=== PATIENT | male | born 1990 | race African-American/Black ===

== ENCOUNTER 2016-12-12 00:49 | Emergency (ER) | payer MEDICARE ==
[~2016-12-12] VITALS: Ht 188 cm; Wt 250.0 kg
[~2016-12-12 00:49] MED LIST: CITA10TA8; CITA20TA9 PO; ENAL20TA68 PO; FURO-93 PO; LISI1POW; LISI40TA PO; METF500T4 PO; QUET100T4 PO; TRAZ50TA18 PO; TRAZ5POW
[2016-12-12 00:50] VITALS: BP 142/80
[2016-12-12] MEDS ORDERED: KETOROLAC 30 MG/1 ML ONE (01:21)
[2016-12-12] MEDS ORDERED: KETOROLAC 30 MG/1 ML IM ONE (01:30)
== END 2016-12-12 03:53 | disposition home or self-care (01) ==
LOC: ED 01:01
DX: G89.11 Acute pain due to trauma (principal); M25.562 Pain in left knee; E11.9 Type 2 diabetes mellitus without complications; I10 Essential (primary) hypertension; J45.909 Unspecified asthma, uncomplicated; Z90.49 Acquired absence of other specified parts of digestive tract
CPT/HCPCS: 73564; 96372; 99284; J1885

== ENCOUNTER 2017-04-12 19:24 | Emergency (ER) | payer MEDICARE ==
[~2017-04-12] VITALS: Ht 188 cm; Wt 218.0 kg
[2017-04-12] MEDS ORDERED: BACITRACIN ZINC OINT 500U/GM, 0.9 GM ONE ×3 (19:44→19:47)
[2017-04-12] MEDS ORDERED: IBUPROFEN 200 MG TABLET PO ONE (20:00)
[2017-04-12] MEDS ORDERED: IBUPROFEN 200 MG TABLET ONE (20:18)
[2017-04-12 20:26] VITALS: BP 144/82
== END 2017-04-12 20:29 | disposition home or self-care (01) ==
LOC: ED 19:48
DX: E66.01 Morbid (severe) obesity due to excess calories (principal); Z68.41 Body mass index [BMI] 40.0-44.9, adult; R23.4 Changes in skin texture; I10 Essential (primary) hypertension; E11.9 Type 2 diabetes mellitus without complications; J45.909 Unspecified asthma, uncomplicated; Z90.49 Acquired absence of other specified parts of digestive tract; F17.200 Nicotine dependence, unspecified, uncomplicated
CPT/HCPCS: 99283

== ENCOUNTER 2019-02-22 04:05 | Emergency (ER) | payer MEDICARE, MEDICAID ==
[~2019-02-22] VITALS: Ht 188 cm; Wt 242.3 kg
[~2019-02-22 04:05] MED LIST changes: +METF500T17 PO; -METF500T4 PO; -TRAZ50TA18 PO; +TRAZ50TA66 PO
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
--- NOTE | 2019-02-22 04:48 | NUR ---
LAB IN ROOM AT THIS TIME.
[2019-02-22 05:11] LABS: BASOPHILS # (AUTO) 0.02 x10^3/uL (0-0.1); BASOPHILS % (AUTO) 0 % (0-1); EOSINOPHILS # (AUTO) 0.23 x10^3/uL (0-0.4); EOSINOPHILS % (AUTO) 2 % (1-7); LYMPHOCYTES # (AUTO) 3.03 x10^3/uL (1-3.4); LYMPHOCYTES % (AUTO) 22 % (22-44); MD NO; MEAN CORPUSCULAR HEMOGLOBIN 25.8 pg (27.5-34.5); MEAN CORPUSCULAR HGB CONC 31.6 g/dL (33.2-36.2); MEAN CORPUSCULAR VOLUME 81.8 fL (81-97); MEAN PLATELET VOLUME 8.4 fL (7.4-10.4); MONOCYTES # (AUTO) 1.25 x10^3/uL (0.2-0.8); MONOCYTES % (AUTO) 9 % (2-9); NEUTROPHILS # (AUTO) 8.99 x10^3/uL (1.8-6.8); NEUTROPHILS % (AUTO) 67 % (42-75); PLATELET COUNT 315 x10^3/uL (130-400); RED BLOOD COUNT 5.24 x10^6/uL (4.38-5.82); RED CELL DISTRIBUTION WIDTH 16.1 % (9.4-14.8)
--- NOTE | 2019-02-22 05:23 | NUR ---
LAB RESULTS PENDING
--- NOTE | 2019-02-22 05:23 | NUR ---
PT PROVIDED SANDWICH, REG DIET ORDERED BY ERP. ALL NEEDS MET AT THIS TIME. VSS. CALL LIGHT WITHIN REACH.
[2019-02-22 05:26] LABS: CALCIUM 8.6 mg/dL (8.5-10.1); CHLORIDE 110 mmol/L (98-107)
[2019-02-22 05:32] LABS: ALANINE AMINOTRANSFERASE 27 U/L (12-78); ALBUMIN 3.2 g/dL (3.4-5.0); ALKALINE PHOSPHATASE 82 U/L (45-117); ANION GAP 6 mmol/L (5-15); BILIRUBIN,TOTAL 0.9 mg/dL (0.2-1.0); CREATININE 1.15 mg/dL (0.7-1.3); TOTAL PROTEIN 7.3 g/dL (6.4-8.2)
[2019-02-22 05:53] VITALS: BP 144/62
--- NOTE | 2019-02-22 05:53 | NUR ---
PT REPORTS NO DIZZINESS AT THIS TIME. STATES "IM FEELING OKAY". PT PROVIDED D/C INFORMATION. VSS UPON D/C.
== END 2019-02-22 05:58 | disposition home or self-care (01) ==
LOC: ED 05:24
DX: R53.1 Weakness (principal); F12.10 Cannabis abuse, uncomplicated; E11.9 Type 2 diabetes mellitus without complications; Z72.89 Other problems related to lifestyle; Z90.49 Acquired absence of other specified parts of digestive tract
CPT/HCPCS: 36415; 80053; 85025; 93005; 99284

== ENCOUNTER 2019-10-31 13:40 | Emergency (ER) | payer MEDICAID, MEDICARE ==
[~2019-10-31] VITALS: Ht 188 cm; Wt 265.0 kg
[2019-10-31 13:50] VITALS: BP 152/96
--- NOTE | 2019-10-31 14:05 | NUR ---
SONOSCOPE OPERATOR: PT TO ROOM FROM [facility]
[2019-10-31] MEDS ORDERED: METHOCARBAMOL 750 MG TABLET ONE (14:30)
[2019-10-31] MEDS ORDERED: KETOROLAC 60 MG/2 ML ONE (14:30)
[2019-10-31] MEDS ORDERED: KETOROLAC 30 MG/1 ML IM ONE (14:30)
[2019-10-31] MEDS ORDERED: METHOCARBAMOL 750 MG TABLET PO ONE (14:30)
--- NOTE | 2019-10-31 14:36 | NUR ---
MEDS ADMIN PER MAY.
== END 2019-10-31 15:53 | disposition home or self-care (01) ==
LOC: ED 14:55
DX: S39.012A Strain of muscle, fascia and tendon of lower back, initial encounter (principal); I10 Essential (primary) hypertension; E11.9 Type 2 diabetes mellitus without complications; F20.9 Schizophrenia, unspecified; Z90.49 Acquired absence of other specified parts of digestive tract; Z88.6 Allergy status to analgesic agent; X58.XXXA Exposure to other specified factors, initial encounter; Y93.89 Activity, other specified; Y92.89 Other specified places as the place of occurrence of the external cause; Y99.8 Other external cause status
CPT/HCPCS: 96372; 99283; J1885

== ENCOUNTER 2020-01-17 19:32 | Emergency (ER) | payer MEDICARE, MEDICAID ==
[~2020-01-17] VITALS: Ht 188 cm; Wt 277.0 kg
[2020-01-17 19:43] VITALS: BP 165/98
--- NOTE | 2020-01-17 21:41 | NUR ---
pt to room from lobby
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
[2020-01-17] MEDS ORDERED: ARIP20TA5 PO (22:13)
[2020-01-17] MEDS ORDERED: TRAZ-175 PO (22:13)
--- NOTE | 2020-01-17 22:13 | NUR ---
PT. TO X-RAY VIA [employer].
[2020-01-17] MEDS ORDERED: NEOSPORIN OINT. PKT 1 PACKET ONE (23:09)
[2020-01-17] MEDS ORDERED: BACITRACIN ZINC OINT 500U/GM, 0.9 GM TP ONE (23:30)
== END 2020-01-17 23:48 | disposition home or self-care (01) ==
LOC: ED 23:18
DX: S30.811A Abrasion of abdominal wall, initial encounter (principal); M79.651 Pain in right thigh; I10 Essential (primary) hypertension; E11.9 Type 2 diabetes mellitus without complications; J45.909 Unspecified asthma, uncomplicated; Z90.49 Acquired absence of other specified parts of digestive tract; W01.0XXA Fall on same level from slipping, tripping and stumbling without subsequent striking against object, initial encounter; Y93.89 Activity, other specified; Y92.009 Unspecified place in unspecified non-institutional (private) residence as the place of occurrence of the external cause; Y99.8 Other external cause status
CPT/HCPCS: 99283

== ENCOUNTER 2020-03-03 13:26 | Emergency (ER) | payer MEDICAID, MEDICARE ==
[~2020-03-03] VITALS: Ht 188 cm; Wt 254.0 kg
[~2020-03-03 13:26] MED LIST changes: +ARIP20TA5 PO; +TRAZ-175 PO
--- NOTE | 2020-03-03 14:57 | NUR ---
PT TO ROOM AT THIS TIME.
[2020-03-03] MEDS ORDERED: KETOROLAC 30 MG/1 ML IM ONE (15:30)
[2020-03-03] MEDS ORDERED: KETOROLAC 30 MG/1 ML ONE (15:39)
[2020-03-03 15:40] LABS: BASOPHILS % (AUTO) 1 % (0-1); EOSINOPHILS % (AUTO) 1 % (1-7); LYMPHOCYTES % (AUTO) 18 % (22-44); MEAN CORPUSCULAR HEMOGLOBIN 24.9 pg (27.5-34.5); MEAN CORPUSCULAR HGB CONC 32.3 g/dL (33.2-36.2); MEAN PLATELET VOLUME 7.8 fL (7.4-10.4); MONOCYTES % (AUTO) 8 % (2-9); NEUTROPHILS % (AUTO) 72 % (42-75); PLATELET COUNT 414 x10^3/uL (130-400); RED BLOOD COUNT 5.44 x10^6/uL (4.38-5.82); RED CELL DISTRIBUTION WIDTH 16.7 % (9.4-14.8)
[2020-03-03 15:41] LABS: ANION GAP 4 mmol/L (5-15); CALCIUM 8.5 mg/dL (8.5-10.1); CHLORIDE 105 mmol/L (98-107); CREATININE 1.29 mg/dL (0.7-1.3)
[2020-03-03 15:42] LABS: ALBUMIN 3.2 g/dL (3.4-5.0)
--- NOTE | 2020-03-03 15:44 | NUR ---
TASK RN: URINE COLLECTED AND SENT TO LAB. PT MEDICATED PER EMAR. PT RESTING ON [employer] W/ CALL LIGHT IN REACH AND SIDE RAILS UPX2. RESP EVEN AND UNLABORED, GIANNA.
[2020-03-03 15:47] LABS: MD NO
[2020-03-03 15:50] LABS: MICROSCOPIC AUTO
--- NOTE | 2020-03-03 16:59 | NUR ---
PATIENT REPORTS INCREASED COMFORT AFTER PAIN MEDICATION.
[2020-03-03 18:02] VITALS: BP 149/103
== END 2020-03-03 18:12 | disposition home or self-care (01) ==
LOC: ED 16:28
DX: M79.671 Pain in right foot (principal); M79.672 Pain in left foot; I99.8 Other disorder of circulatory system; E66.01 Morbid (severe) obesity due to excess calories; I10 Essential (primary) hypertension; E11.9 Type 2 diabetes mellitus without complications; J45.909 Unspecified asthma, uncomplicated; Z90.49 Acquired absence of other specified parts of digestive tract; Z68.41 Body mass index [BMI] 40.0-44.9, adult
CPT/HCPCS: 36415; 71045; 80048; 81001; 82040; 83880; 85025; 96372; 99284; J1885

== ENCOUNTER 2020-05-22 19:08 | Emergency (ER) | payer MEDICARE ==
[~2020-05-22] VITALS: Ht 188 cm; Wt 210.0 kg
[~2020-05-22 19:08] MED LIST changes: -LISI40TA PO; +LISI40TA9 PO
--- NOTE | 2020-05-22 19:26 | NUR ---
MARLON BATRES FROM [facility] FOR C/O INCRESED SOB AND BILAT SHOULDER PAIN WHILE WALKING TONIGHT. DR. FERNANDEZ WAS IN TO EVAL PT. AND DISCUSS POC. EKG DONE ON ARRIVAL. CONTINUOUS PULSE OX, B/P, AND CARDIAC MONITORS PLACED. NSR NOTED ON MONITOR. CALL LIGIHT IN REACH. ALL SAFETY MEASURES OBSERVED.
[2020-05-22 19:39] LABS: BASOPHILS % (AUTO) 1 % (0-1); EOSINOPHILS % (AUTO) 1 % (1-7); LYMPHOCYTES % (AUTO) 24 % (22-44); MEAN CORPUSCULAR HEMOGLOBIN 24.5 pg (27.5-34.5); MEAN CORPUSCULAR HGB CONC 32.1 g/dL (33.2-36.2); MEAN PLATELET VOLUME 8.1 fL (7.4-10.4); MONOCYTES % (AUTO) 8 % (2-9); NEUTROPHILS % (AUTO) 67 % (42-75); PLATELET COUNT 361 x10^3/uL (130-400); RED BLOOD COUNT 5.44 x10^6/uL (4.38-5.82); RED CELL DISTRIBUTION WIDTH 16.8 % (9.4-14.8)
[2020-05-22 19:43] LABS: MD NO
[2020-05-22 19:53] LABS: ALBUMIN 3.1 g/dL (3.4-5.0); ANION GAP 6 mmol/L (5-15); CALCIUM 8.1 mg/dL (8.5-10.1); CHLORIDE 107 mmol/L (98-107); CREATININE 1.08 mg/dL (0.7-1.3)
[2020-05-22 19:57] LABS: TROPONIN I < 0.015 ng/mL (0.000-0.045)
--- NOTE | 2020-05-22 20:29 | NUR ---
CHART UP FOR RECHECK BY ERP.
--- NOTE | 2020-05-22 20:35 | NUR ---
PT. RESTING ON GURNEY WITH RAPID/NON-LABORED RESPIRATIONS. PT. PROVIDED WITH WARM BLANKET. DENIES OTHER NEEDS AT THIS TIME. SAFETY MEASURES MAINTAINED.
--- NOTE | 2020-05-22 21:27 | NUR ---
LAB AT FOR REPEAT BLOOD DRAW.
[2020-05-22 21:49] LABS: TROPONIN I < 0.015 ng/mL (0.000-0.045)
[2020-05-22] MEDS ORDERED: KETOROLAC 60 MG/2 ML ONE (21:52)
[2020-05-22] MEDS ORDERED: KETOROLAC 30 MG/1 ML IM ONE (22:00)
[2020-05-22 23:04] VITALS: BP 146/78
== END 2020-05-22 23:05 | disposition home or self-care (01) ==
LOC: ED 19:54
DX: R06.00 Dyspnea, unspecified (principal); R94.31 Abnormal electrocardiogram [ECG] [EKG]; I10 Essential (primary) hypertension; E11.9 Type 2 diabetes mellitus without complications; J45.909 Unspecified asthma, uncomplicated; F17.200 Nicotine dependence, unspecified, uncomplicated; Z90.49 Acquired absence of other specified parts of digestive tract; Z88.5 Allergy status to narcotic agent; Z88.6 Allergy status to analgesic agent
CPT/HCPCS: 36415; 71045; 80048; 82040; 83880; 84484; 85025; 85379; 93005; 96372; 99285; J1885

== ENCOUNTER 2020-06-17 20:12 | Emergency (ER) | payer MEDICARE ==
[~2020-06-17] VITALS: Ht 177.8 cm; Wt 272.5 kg
[2020-06-17] MEDS ORDERED: KETOROLAC 30 MG/1 ML IM ONE (21:00)
[2020-06-17] MEDS ORDERED: KETOROLAC 30 MG/1 ML ONE (21:01)
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
--- NOTE | 2020-06-17 21:21 | NUR ---
BS 143
[2020-06-17 22:38] VITALS: BP 130/64
== END 2020-06-17 22:41 ==
LOC: ED 20:55
DX: G62.9 Polyneuropathy, unspecified (principal); G89.29 Other chronic pain; M79.671 Pain in right foot; M79.672 Pain in left foot; I10 Essential (primary) hypertension; E11.9 Type 2 diabetes mellitus without complications; Z76.0 Encounter for issue of repeat prescription
CPT/HCPCS: 82962; 96372; 99283; J1885

== ENCOUNTER 2020-11-29 15:32 | Emergency (ER) | payer MEDICARE ==
[~2020-11-29] VITALS: Ht 188 cm; Wt 245.0 kg
[2020-11-29 15:46] VITALS: BP 172/90
[2020-11-29 16:11] LABS: BASOPHILS % (AUTO) 1 % (0-1); EOSINOPHILS % (AUTO) 1 % (1-7); LYMPHOCYTES % (AUTO) 25 % (22-44); MEAN CORPUSCULAR HEMOGLOBIN 25.2 pg (27.5-34.5); MEAN CORPUSCULAR HGB CONC 32.9 g/dL (33.2-36.2); MEAN PLATELET VOLUME 7.9 fL (7.4-10.4); MONOCYTES % (AUTO) 8 % (2-9); NEUTROPHILS % (AUTO) 65 % (42-75); PLATELET COUNT 344 x10^3/uL (130-400); RED BLOOD COUNT 5.32 x10^6/uL (4.38-5.82); RED CELL DISTRIBUTION WIDTH 17.1 % (9.4-14.8)
[2020-11-29 16:17] LABS: CALCIUM 8.2 mg/dL (8.5-10.1); CHLORIDE 105 mmol/L (98-107)
[2020-11-29 16:22] LABS: ALANINE AMINOTRANSFERASE 22 U/L (12-78); ALBUMIN 2.8 g/dL (3.4-5.0); ALKALINE PHOSPHATASE 89 U/L (45-117); ANION GAP 5 mmol/L (5-15); BILIRUBIN,TOTAL 1.1 mg/dL (0.2-1.0); TOTAL PROTEIN 7.5 g/dL (6.4-8.2)
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
[2020-11-29 16:29] LABS: SALICYLATE LEVEL < 1.7 mg/dL (2.8-20.0)
[2020-11-29] MEDS ORDERED: CITALOPRAM 10 MG TABLET PO SCH (16:30)
[2020-11-29] MEDS ORDERED: ARIPIPRAZOLE 10 MG TABLET PO SCH (16:30)
--- NOTE | 2020-11-29 17:30 | NUR ---
pt sleeping, resps even and unlabored. sitter monitoring from community health for safety.
--- NOTE | 2020-11-29 18:23 | NUR ---
THROUGHPUT: [facility] WHEN MEDICALLY CLEARED. PT STILL NEEDS URINE, AND RAPID COVID. NOTIFIED PRIMARY RN
--- NOTE | 2020-11-29 18:43 | NUR ---
URINE AND COVID SWAB COLLECTED PER POLICY FOR TRANSFER TO [facility]. PT PROVIDED WITH SUICIDE DIET TRAY. PT A&O, RESPS EVEN AND UNLABORED, GIANNA. SITTER MONITORING FROM [facility] FOR SAFETY.
--- NOTE | 2020-11-29 18:59 | NUR ---
PT UP TO VOID IN BATHROOM, GAIT STEADY. NOW BACK IN BED, SITTER MONITORING FROM HALLWAY FOR SAFETY.
--- NOTE | 2020-11-29 19:06 | NUR ---
RECEIVED REPORT FROM ALEXY NASH. PT RESTING ON [facility]. NADN. MURILLO REMAINS AT BEDSIDE.
--- NOTE | 2020-11-29 19:08 | NUR ---
REPORT GIVEN TO U ALEXY RANDOLPH, WELL ED ALEXY PRADO WHO WILL ASSUME CARE UNTIL PT IS TRANSPORTED TO [facility].
--- NOTE | 2020-11-29 19:10 | NUR ---
MD SAWYER NOTIFIED PT MEETING SOME SIRS CRITERIA, WBC 13.1, HR 91. URINE PENDING. ACKNOWLEDGED BUT DID NOT GIVE ANY NEW ORDERS.
--- NOTE | 2020-11-29 19:12 | NUR ---
CELEXA NOT IN ED OMNICELL, REQUESTED FROM PHARMACY. THIS WAS PASSED ON IN SHIFT CHANGE REPORT.
[2020-11-29 19:16] LABS: MICROSCOPIC AUTO
[2020-11-29 19:20] LABS: METHADONE SCREEN, URINE Negative (Negative)
[2020-11-29 19:25] LABS: AMPHETAMINE SCREEN, URINE Negative (Negative); BARBITURATE SCREEN, URINE Negative (Negative); BENZODIAZEPINE SCREEN, URINE Negative (Negative); CANNABINOID SCREEN, URINE Negative (Negative); COCAINE SCREEN, URINE Negative (Negative); OPIATE SCREEN, URINE Negative (Negative)
--- NOTE | 2020-11-29 19:35 | NUR ---
ERP DR. SAWYER NOTIFIED OF [facility] RESULTS. NO NEW ORDERS.
--- NOTE | 2020-11-29 20:04 | NUR ---
PT RAPID COVID APPEARS SARS ANTIGEN IN LAB RESULTS. CALLED [facility] AND DISCUSSED THIS AND STATES THEY WILL LOOK INTO IT. MADE AWARE THE RAPID COVID TEST IS FOR ADMISSION TO [facility].
[2020-11-29] MEDS ORDERED: ARIPIPRAZOLE 10 MG TABLET ONE (20:10)
--- NOTE | 2020-11-29 20:38 | NUR ---
PT RESTING ON [place]. NADN. GOLDMANTER REMAINS AT BEDSIDE.
[2020-11-30] MEDS ORDERED: GABA-827 PO (00:46)
[2020-11-30] MEDS ORDERED: LISI-170 PO (00:46)
[2020-11-30] MEDS ORDERED: METF500T17 PO (00:46)
[2020-12-08] MEDS ORDERED: METF500T17 PO (14:55)
[2020-12-08] MEDS ORDERED: ARIP10TA33 PO (14:55)
[2020-12-08] MEDS ORDERED: TRAZ-175 PO (14:55)
[2020-12-08] MEDS ORDERED: CITA20TA9 PO (14:55)
[2020-12-08] MEDS ORDERED: TOPI25TA32 PO (14:55)
[2020-12-08] MEDS ORDERED: LISI5TAB7 PO (14:55)
[2020-12-08] MEDS ORDERED: FERR-36 PO (14:55)
== END 2020-11-29 21:00 ==
LOC: ED 16:17
DX: I87.2 Venous insufficiency (chronic) (peripheral) (principal); F32.9 Major depressive disorder, single episode, unspecified; R45.851 Suicidal ideations; I10 Essential (primary) hypertension; E11.9 Type 2 diabetes mellitus without complications; Z20.822 Contact with and (suspected) exposure to COVID-19
CPT/HCPCS: 36415; 80053; 80299; 80307; 80320; 80329; 81001; 85025; 87426; 99285; G0480